=== PATIENT | female | born 1985 | race Caucasian/White ===

== ENCOUNTER → 2024-11-13 08:50 | Outpatient (REF) | payer OTHER, SELFPAY | LOC: WDC 08:50 | PROVIDERS: ATTENDING PHYSICIAN Registered Nurse; FAMILY PHYSICIAN Family Medicine | DX: N63.20 Unspecified lump in the left breast, unspecified quadrant (principal); N63.23 Unspecified lump in the left breast, lower outer quadrant | CPT/HCPCS: 76642; 77062; 77066 ==

== ENCOUNTER → 2025-04-07 16:22 | Outpatient (REF) | payer OTHER, SELFPAY | LOC: RAD 16:22 | PROVIDERS: ATTENDING PHYSICIAN Family Medicine | DX: R76.8 Other specified abnormal immunological findings in serum (principal); R63.4 Abnormal weight loss; R73.01 Impaired fasting glucose; R10.31 Right lower quadrant pain | CPT/HCPCS: 74177; Q9967 ==

== ENCOUNTER 2025-06-20 06:28 | Day surgery (SDC) | payer OTHER, SELFPAY | END 2025-06-20 15:04 | disposition home or self-care (01) | LOC: GI 06:28 | PROVIDERS: ATTENDING PHYSICIAN Internal Medicine Gastroenterology | DX: Q43.8 Other specified congenital malformations of intestine (principal); K64.8 Other hemorrhoids; R63.4 Abnormal weight loss | CPT/HCPCS: 45380; 43239; 88305; 88342 ==